=== PATIENT | female | born 1965 | race Caucasian/White ===

== ENCOUNTER 2023-10-07 12:37 | Outpatient (OUT) | payer BC, SELFPAY | END 2023-10-07 12:38 | disposition home or self-care (01) | LOC: PST 12:38 | PROVIDERS: Visit Provider Urology | DX: Z01.818 Encounter for other preprocedural examination (principal); N20.1 Calculus of ureter; I10 Essential (primary) hypertension; E78.5 Hyperlipidemia, unspecified; K21.9 Gastro-esophageal reflux disease without esophagitis; J45.909 Unspecified asthma, uncomplicated ==

== ENCOUNTER 2023-10-12 13:45 | Day surgery (SDC) | payer BC, SELFPAY ==
--- NOTE | 2023-10-12 14:42 | PC.NURSE ---
1420 patient's procedure was postponed due to aspiration concerns regarding self administration of Ozempic on 2023.
== END 2023-10-12 14:20 | disposition home or self-care (01) ==
PROVIDERS: PCP Family Medicine; Visit Provider Urology
DX: N20.1 Calculus of ureter (principal); Z53.8 Procedure and treatment not carried out for other reasons
CPT/HCPCS: 52356

== ENCOUNTER 2023-10-19 13:18 | Day surgery (SDC) | payer BC, SELFPAY ==
[2023-10-19] VITALS (8 sets, daily range): BP systolic 124–160; BP diastolic 69–89; PULSE 69–91; TEMP 35.5–36.5; O2SAT 88–100; BMI 27.2
--- NOTE | 2023-10-19 | XR_ITS ---
[address] [address] Patient Name: JOSE ALEJANDRO DIAMOND MRN: [id number] date: 1965 Sex: F Assigned Patient Location: [facility] Current Patient Location: Accession/Order Number: [id number] Exam Date: 10/19/2023 14:50 Report Date: 10/21/2023 05:24 At the request of: JOAQUIM HIGGINS Procedure: XR urethrogram retrograde EXAM: XR urethrogram retrograde HISTORY: bilateral retrograde COMPARISON: None. TECHNIQUE: Multiple intraprocedural spot fluoroscopic images. FINDINGS: Multiple images demonstrate retrograde filling of the right and left ureters without obstruction. Placement of left ureteral stent. XR/XR urethrogram retrograde IMPRESSION: 1. Patent bilateral ureters. 2. Left ureteral stent placement. Electronically authenticated by: CHRIS KEANE Date: 10/21/2023 05:24
[2023-10-19] MEDS: LACTATED RINGER'S SOLUTION 1,000 ML 50 ML IV ×2 (13:53→15:58)
[2023-10-19] MEDS: CEFAZOLIN SODIUM 2 GM/50 ML D5W PREMIX IV (14:29)
[2023-10-19] MEDS: IOHEXOL 240 MG/ML - 10 ML VIAL INJ (15:00)
--- NOTE | 2023-10-19 15:41 | PM.URSON ---
Urology Surgery Operative Note Operative Note Procedure Date: 10/19/23 Time Out Performed: yes Pre-op Diagnosis: 1. Left ureteral stone 2. Right flank pain Post-op Diagnosis: same as pre-op (1. Left ureteral stone 2. Left kidney stones 3. Right flank pain) Procedures performed: 1. Cystoscopy, left retrograde pyelogram, ureteroscopy with stone basket extraction, stent exchange 2. Left renoscopy with kidney stone basket extraction 3. Right retrograde pyelogram Anesthesia: General-LMA (Dr. Aguilar) Primary Surgeon: Winifred Conde Complications: none Estimated blood loss (mL): 0 Findings: L RPG - 2 cm mild narrowing of proximal ureter, mild hydronephrosis. No extravasation or filling defects at end of case. Left proximal crystal ureteral stone pushed into kidney. Basket extraction of 4 stones in kidney, 2-4 mm each. R RPG - no hydronephrosis, filling defects or extravasation. Prompt drainage of contrast Specimens: left kidney stones Drains: 4.9Fr x 22-32 cm JJ left ureteral stent on string Incision: none Indications for Procedures: 58 year old female recently diagnosed with a left 4 mm UPJ stone with hydronephrosis and sepsis s/p stent placement 09/26/23 here for definitive treatment via left ureteroscopy, laser lithotripsy/stone extraction, stent exchange vs removal. Also noted to have few nonobstructing stones bilaterally, desired removal of left kidney stones at the same time. Patient in preop mentioned significant right flank pain and asked to undergo evaluation of right retrograde pyelogram, possible ureteroscopy with laser lithotripsy/stone extraction, possible stent placement. Risks were discussed including but not limited to bleeding, pain, infection, damage to surrounding structures, inability to treat the stone/place a stent, and need for additional procedures. The patient understands the stent is not permanent and needs to be removed or exchanged within 3 months to prevent encrustation, infection, invasive procedures and/or permanent renal damage. Detailed description of Procedure: After informed consent was obtained, the patient was brought to the operating room and transferred onto the operating table in supine position. Sequential compression devices were placed on bilateral lower extremities. The patient received the appropriate dose of preoperative IV antibiotics and general anesthesia LMA was induced. They were positioned in modified dorsolithotomy with the appropriate pressure points padded, prepped, and draped in the usual sterile fashion for this procedure. An operative safety timeout was performed confirming the patient's identity, laterality and procedure, and all present agreed to proceed. I began by inserting a 22 Estonian rigid cystoscope with 30 degree lens into the patient's urethra and bladder without difficulty. There were no bladder tumors, lesions, or stones. Bilateral ureteral orifices were orthotopic and patent. I turned my attention to the left ureteral orifice and flexible graspers were used to bring the indwelling stent to the meatus. A Sensor wire was inserted into the stent up to the renal pelvis confirmed on fluoroscopy, stent removed without difficulty. Next a semirigid ureteroscope was inserted along the wire to ensure the stone had not migrated. Contrast was injected through the ureteroscope for retrograde pyelogram as above. The semirigid ureteroscope wa then used to intubate the right UO and contrast was injected for retrograde pyelogram with findings as above. Next a flexible ureteroscope was inserted alongside the left wire and advanced into the left ureter until the stone was reached. This ended up being pushed back up into the kidney easily, but was unable to be basket extract past proximal ureter due to jagged edges. A 10/12 Estonian by 35 cm ureteral access sheath was inserted over the wire in a sequential fashion to gain access to the renal pelvis. A 1.8 tipless nitinol basket was used to remove the stones, as the crystallized edges slightly broke off and stones fit through the sheath. After the stones were removed, a full renoscopy was performed confirming no significant residual stones or fragments remained. Contrast was injected to assist with mapping for the renoscopy. The wire was reinserted and a pull down ureteroscopy was performed confirming no stones remained in the ureter. Due to proximal ureteral narrowing, use of sheath and history of sepsis, a 4.9Fr x 22-32cm JJ variable length ureteral stent on a string was advanced over the wire, noting adequate curl in renal pelvis and bladder on fluoroscopy. The bladder was drained, stones sent for pathology. The patient tolerated the procedure well without complication. The patient was awakened from anesthesia and sent to PACU in stable condition. Plan: Discharge home. Remove stent by the string at home in 2-3 days, prophy abx sent. Renal US in 6-8 weeks to ensure silent obstruction does not develop. Follow up with Dr. Martinez as previously scheduled. Other Provider present: No Post Operative care instructions: See discharge instructions Attending Doc Confirm Attending Attestation: Yes
--- NOTE | 2023-10-19 16:12 | PC.NURSE ---
Hooking insulin pump up with her 's assist
--- NOTE | 2023-10-19 16:19 | PC.NURSE ---
Up to bathroom and voids clear yellow without difficulty
[2023-11-01 12:08] LABS: Calcium Oxalate Dihydrate 90 % (.); Calcium Oxalate Monohydrate 10 % (.); Size 3x2 mm (.)
== END 2023-10-19 16:51 | disposition home or self-care (01) ==
PROVIDERS: PCP Family Medicine; Visit Provider Urology
PROC: (CPT 918; principal; 2023-10-19 14:15)
DX: N13.2 Hydronephrosis with renal and ureteral calculous obstruction (principal); R10.9 Unspecified abdominal pain; Z87.442 Personal history of urinary calculi; Z90.710 Acquired absence of both cervix and uterus; F17.210 Nicotine dependence, cigarettes, uncomplicated; J44.9 Chronic obstructive pulmonary disease, unspecified; K21.9 Gastro-esophageal reflux disease without esophagitis; K44.9 Diaphragmatic hernia without obstruction or gangrene; E11.40 Type 2 diabetes mellitus with diabetic neuropathy, unspecified; Z79.4 Long term (current) use of insulin; Z79.84 Long term (current) use of oral hypoglycemic drugs
CPT/HCPCS: 52356; 74420; 82365; 99999; J0690; J2250; J2371; J2405; J2704; J3010; Q9966